=== PATIENT | female | born 1980 ===

== ENCOUNTER 2021-05-18 18:52 | Observation (INO) | payer OTHER ==
[~2021-05-18] VITALS: Ht 162.6 cm; Wt 59.0 kg
[2021-05-18 20:23] LABS: BASOPHILS ABSOLUTE AUTO 0.06 K/mm3 (0.00-0.23); BASOPHILS PERCENT AUTO 1 % (0-2); EOSINOPHILS PERCENT AUTO 1 % (0-6); Hematocrit 41.4 % (33.0-51.0); Hemoglobin 13.4 g/dL (11.5-16.0); IMMATURE GRAN ABSOLUTE AUTO 0.03 K/mm3 (0.00-0.10); IMMATURE GRAN PERCENT AUTO 0 % (0-1); LYMPHOCYTES ABSOLUTE AUTO 2.86 K/mm3 (0.84-5.20); LYMPHOCYTES PERCENT AUTO 33 % (21-46); MONOCYTES ABSOLUTE AUTO 0.59 K/mm3 (0.16-1.47); MONOCYTES PERCENT AUTO 7 % (4-13); Mean Corpuscular HGB Conc 32.4 g/dL (31.5-36.5); Mean Corpuscular Volume 87 fL (80-100); Mean Platelet Volume 9.4 fL (9.1-12.4); NEUTROPHILS ABSOLUTE AUTO 5.04 K/mm3 (1.96-9.15); NEUTROPHILS PERCENT AUTO 58 % (41-73); Platelet Count 429 K/mm3 (150-400); RDW Coefficient Variation 14.1 % (11.7-14.2); RDW Standard Deviation 44.6 fL (35.1-46.3); Red Blood Cell Count 4.78 M/mm3 (3.80-5.20); White Blood Cell Count 8.68 K/mm3 (4.00-11.30)
[2021-05-18 20:52] LABS: Ethanol (Alcohol), Blood, Med <3 mg/dL; Salicylate <1.7 mg/dL (2.8-20.0)
[2021-05-18 20:53] LABS: Alanine Aminotransfer (ALT/SGP 24 U/L (12-78); Alk Phos 89 U/L (50-136); Anion Gap 6 mmol/L (6-16); Aspartate Aminotrans (AST/SGOT 17 U/L (12-37); Bilirubin, Total 0.4 mg/dL (0.1-1.0); Blood Urea Nitrogen 10 mg/dL (8-24); Bun/Creatinine Ratio 14.6 (12.0-20.0); CO2, Blood 26 mmol/L (21-32); Calcium, Blood 9.9 mg/dL (8.5-10.1); Chloride, Blood 106 mmol/L (98-108); Creatinine, Blood 0.69 mg/dL (0.40-1.00); Glomerular Filtration Rate >60 (60-); Glucose, Blood 85 mg/dL (70-99); Potassium, Blood 4.1 mmol/L (3.5-5.5); Sodium, Blood 138 mmol/L (136-145)
[2021-05-18 20:58] LABS: Acetaminophen, Random <2.0 ug/mL (10.0-30.0)
[2021-05-18 21:22] LABS: Source, Urine Clean Catch
[2021-05-18 21:25] LABS: Appearance, Urine Turbid (Clear); Bilirubin, Urine Neg (Neg); Blood, Urine 2+ (Neg); Color, Urine Yellow (P-Yellow); Glucose Qualitative, Urine Neg (Neg); Ketones, Urine Neg (Neg); Leukocyte Esterase, Urine 3+ (Neg); Nitrite, Urine Neg (Neg); Protein, Urine 2+ (Neg); Specific Gravity, Urine 1.015 (1.003-1.022); Urobilinogen, Urine NORM (Normal)
[2021-05-18 21:33] LABS: White Blood Cells, Urine 25-50 /hpf (0-5)
[2021-05-18 21:34] LABS: Bacteria Many /hpf; Squamous Epithelial Cells Mod /hpf (Few)
[2021-05-18 21:35] LABS: Amorphous Heavy (0-Heavy)
[2021-05-18 21:36] LABS: SARS-Cov-2 (COVID-19) PCR, MMC NEGATIVE (NEGATIVE)
[2021-05-18 21:38] LABS: U Amphetamine Screen DETECTED; U Barbituate Screen Not Detected; U Benzodiazapine Screen Not Detected; U Buprenorphine Screen Not Detected; U Cannabinoids Screen DETECTED; U Cocaine Screen Not Detected; U Methadone Screen Not Detected; U Methamphetamine Screen DETECTED; U Opiates Screen Not Detected; U Oxycodone Screen Not Detected; U Phencyclidine Screen Not Detected; U Propoxyphene Screen Not Detected
[2021-05-19] MEDS ORDERED: Neurontin 300300 MG PO (23:11)
[2021-05-19] MEDS ORDERED: ONDA4ODT MM (23:22)
== END 2021-05-19 23:28 | disposition home or self-care (01) ==
LOC: ER 18:52 → EOR 18:53 → ER 05-19 05:42 → EOR 05-19 23:28
PROVIDERS: Emergency Medicine; Physician Assistant; ADMIT Emergency Medicine
DX: F43.10 Post-traumatic stress disorder, unspecified (principal); F15.288 Other stimulant dependence with other stimulant-induced disorder; F32.9 Major depressive disorder, single episode, unspecified; R45.1 Restlessness and agitation; N39.0 Urinary tract infection, site not specified; Z20.822 Contact with and (suspected) exposure to COVID-19; Z88.2 Allergy status to sulfonamides; Z91.5 Personal history of self-harm; Z59.0 Homelessness
CPT/HCPCS: 80053; 81001; 81025; 85025; 87077; 87086; 87186; 96372; 99285; A9270; G0378; G0480; J0696; J1885; U0004

== ENCOUNTER → 2021-08-01 | Outpatient (CLI) | payer OTHER ==
[~2021-08-01] MED LIST: Neurontin 300300 MG PO; ONDA4ODT MM
== END | disposition home or self-care (01) ==
LOC: LAB SHORT 16:48 → LAB 16:48
DX: L02.31 Cutaneous abscess of buttock (principal)
CPT/HCPCS: 87070; 87075; 87077; 87147; 87186; 87205